=== PATIENT | female | born 1940 | race Caucasian/White ===

== ENCOUNTER → 2016-12-11 | Outpatient (CLI) | payer OTHER | LOC: CIMAGING 08:03 | PROVIDERS: ATTEND Internal Medicine | DX: R10.11 Right upper quadrant pain (principal) | CPT/HCPCS: 76705-PO ==

== ENCOUNTER → 2016-12-13 | Outpatient (CLI) | payer OTHER ==
[~2016-12-13] MED LIST: IOPAMIDOL (ISOVUE-300) 100 ML BTL IV ONE
== END ==
LOC: CIMAGING 09:16
PROVIDERS: ATTEND Internal Medicine
DX: R10.11 Right upper quadrant pain (principal); M51.34 Other intervertebral disc degeneration, thoracic region; M41.86 Other forms of scoliosis, lumbar region
CPT/HCPCS: 74177; Q9967

== ENCOUNTER → 2017-05-02 | Outpatient (CLI) | payer OTHER | LOC: FIMAGING 09:04 | PROVIDERS: ATTEND Orthopaedic Surgery | DX: M25.562 Pain in left knee (principal); Z96.652 Presence of left artificial knee joint ==

== ENCOUNTER → 2018-10-03 | Outpatient (CLI) | payer OTHER | LOC: FIMAGING 13:04 | PROVIDERS: ATTEND Internal Medicine | DX: Z13.820 Encounter for screening for osteoporosis (principal); M85.89 Other specified disorders of bone density and structure, multiple sites; Z78.0 Asymptomatic menopausal state; Z92.241 Personal history of systemic steroid therapy; Z79.890 Hormone replacement therapy ==

== ENCOUNTER → 2018-10-16 | Outpatient (CLI) | payer OTHER | LOC: CIMAGING 14:26 | PROVIDERS: ATTEND Internal Medicine | DX: M25.551 Pain in right hip (principal); R10.9 Unspecified abdominal pain | CPT/HCPCS: 73502-PO ==

== ENCOUNTER → 2018-10-23 | Outpatient (CLI) | payer OTHER ==
[~2018-10-23] MED LIST changes: -IOPAMIDOL (ISOVUE-300) 100 ML BTL IV ONE; +IOPAMIDOL (ISOVUE-300) 100 ML BTL ONE
== END ==
LOC: CIMAGING 13:05
PROVIDERS: ATTEND Internal Medicine
DX: R10.9 Unspecified abdominal pain (principal)
CPT/HCPCS: 74177; Q9967; 82565-PO

== ENCOUNTER → 2018-11-13 | Outpatient (CLI) | payer OTHER | LOC: FIMAGING 08:46 | PROVIDERS: ATTEND Physical Medicine & Rehabilitation | DX: M54.5 Low back pain (principal); M51.36 Other intervertebral disc degeneration, lumbar region ==